=== PATIENT | male | born 1945 | race Caucasian/White ===

== ENCOUNTER 2017-03-17 22:20 | Emergency (ER) | payer OTHER ==
[~2017-03-17] VITALS: Ht 172.7 cm; Wt 90.8 kg
[~2017-03-17 22:20] MED LIST: AMLO10TA2 PO; ASPI-113 PO; CLOP1TAB15 PO; LISI-725 PO; LPR25 PO; NTRGSL/4 SL; SIMV20TA5 PO
[2017-03-17 22:27] VITALS: TEMP 36.4; Ht 172.7 cm; Wt 90.8 kg
--- NOTE | 2017-03-17 23:37 | EMERGENCY ROOM VISIT NOTE ---
History Report prepared by Roxann: Amrit Mckeon Under the Supervision of: Dr. Mir Mcgowan M.D. First contact with patient: 22:58 Chief Complaint: BLEEDING Stated Complaint: EXCESSIVE BLEEDING AFTER WOUND VAC CHANGE Nursing Triage Summary: Pt reports he has wound on chest with wound vac Wound vac was replaced at 1900 today. Pt reports he has bled approx 70cc bright red blood in canister since then History of Present Illness The patient is a 71 year old male who presents to the Emergency Room with complaints of a persistent chest wound bleeding beginning today. He has a wound vac in place, and had it replaced four hours ago. He states that the wound vac was found to have 70 cc of bright red blood in it when removed. The patient states that he has been having problems with this wound since he had CABG surgery about a a year ago. He has had a staph infection of the area previously as well. He denies any recent trauma or straining. The patient also complains of a headache. He denies any shortness of breath, back pain, or leg swelling. He is on Plavix and aspirin. Source of History: patient Onset: Today Position: chest Symptom Intensity: 70 cc Quality: other (bleeding) Timing: other (persistent) Associated Symptoms: + headache, No SOB, No back pain Note: The patient denies any leg swelling. Review of Systems See HPI for pertinent positives & negatives. A total of 6 systems reviewed and were otherwise negative. Past Medical & Surgical Medical Problems: (1) Diverticular disease of colon (2) Essential hypertension (3) History of adenomatous polyp of colon (4) s/p colonoscopy (5) s/p hydrocele repair (6) s/p repair inguinal hernia Family History No pertinent family history stated. Social History Smoking Status: Never Smoker Drug Use: none Marital Status: Current/Historical Medications Scheduled Amlodipine Besylate (Norvasc), 10 MG PO DAILY Aspirin Enteric Coated (Ecotrin Or Generic), 325 MG PO QAM Clopidogrel (Plavix), 75 MG PO QAM Lisinopril (Zestril), 20 MG PO BID Metoprolol Tartrate (Lopressor), 25 MG PO BID Simvastatin (Zocor), 20 MG PO QPM Scheduled PRN Nitroglycerin (Nitrostat), 0.4 MG SL UD PRN Allergies Coded Allergies: Penicillins (Verified Allergy, LIPS SWELL, 08/23/09) LIPS SWELL Physical Exam Vital Signs Date Time Temp Pulse Resp B/P (MAP) Pulse Ox O2 Delivery O2 Flow Rate FiO2 03/17/17 23:44 71 18 174/103 95 03/17/17 22:27 36.4 73 20 196/117 97 Room Air Physical Exam GENERAL: Patient is well appearing and in no acute distress. HEENT: No acute trauma, normocephalic atraumatic, mucous membranes moist, no nasal congestion, no scleral icterus. NECK: No stridor, no adenopathy, no meningismus, trachea is midline. LUNGS: No dyspnea. Clear to auscultation and equal bilaterally. No wheeze, no rhonchi. HEART: Regular rate and rhythm. No murmurs, rubs, gallops appreciated. CHEST: Low central sternal wound vac. No surrounding edema. No drainage from the dressing other than that which is suctioned from the wound vac. Scant amount of serosanguineous fluid in tubing. NEUROLOGIC: Alert and oriented, no acute motor or sensory deficits, no focal weakness, cranial nerves grossly intact. SKIN: No rash, no jaundice, no diaphoresis. Slight bruise under the right eye ( notes scratching due to allergies). Medical Decision & Procedures ED Course 2300: The patient was evaluated in room C4. A complete history and physical exam was performed. 2334: Reevaluated the patient. He has had minimal drainage from the wound vac. Discussed results and discharge instructions: he verbalized understanding and agreement. The patient is ready for discharge. Medical Decision Pleasant 71 yr old male arrives following increased blood in to wound vac from his sternal chest wound. Notes painful replacement several hours earlier by wound care. He is well appearing and after vac off some time now no bleeding in to bandage. Turned vac back on here and just mild sero-sanguinous that is expected. No heavy bleeding. Suspect this was some increased bleeding due to painful vac change earlier in evening. Reviewed symptoms/findings requiring return. Follow up Fri with wound care and surgeon early next week. Regularly checks BP at home and this is elevated which he notes is due to agitation of having to come to ED. Medication Reconcilliation Current Medication List: was personally reviewed by me Blood Pressure Screening Patient's blood pressure: Elevated blood pressure Blood pressure disposition: Did not require urgent referral Impression Primary Impression: Bleeding from wound Additional Impression: Hypertension Scribe Attestation The scribe's documentation has been prepared under my direction and personally reviewed by me in its entirety. I confirm that the note above accurately reflects all work, treatment, procedures, and medical decision making performed by me. Departure Information Dispostion Home / Self-Care Referrals Tony Coyle M.D. (PCP) Patient Instructions My [facility] [address] Additional Instructions If you fill canister, turn off vac and monitor for further bleeding. If continued bleeding in to dressing, apply pressure and return for further evaluation. Return immediately if heavy bleeding, chest pain, shortness of breath, passing out or other concerns. Contact wound care for recheck evaluation tomorrow. Your blood pressure was elevated during this visit. This is quite common in many people who are being evaluated in the Emergency Department for many reasons. However, it is important that you have your Primary Care Provider recheck your blood pressure and discuss whether treatment will be needed. terminologist elevated blood pressure can lead to strokes, heart attacks, kidney failure amongst other medical issues. If you develop severe headaches, chest pain, weakness in arms or legs, or other concerning symptoms call 911. Problem Qualifiers
[2017-03-17 23:44] VITALS: BP 174/103; PULSE 71; O2SAT 95
== END 2017-03-17 23:42 | disposition home or self-care (01) ==
LOC: C.EDB 22:21 → C.EDC 23:42
DX: S21.90XA Unspecified open wound of unspecified part of thorax, initial encounter (principal); X58.XXXA Exposure to other specified factors, initial encounter; I10 Essential (primary) hypertension; K57.30 Diverticulosis of large intestine without perforation or abscess without bleeding; Z86.010 Personal history of colon polyps; Z98.890 Other specified postprocedural states; Z79.82 Long term (current) use of aspirin; Z79.899 Other long term (current) drug therapy; Z88.0 Allergy status to penicillin

== ENCOUNTER 2017-07-17 12:00 | Inpatient (IN) | payer OTHER ==
[~2017-07-17] VITALS: Ht 172.7 cm; Wt 89.4 kg
--- NOTE | 2017-07-17 12:35 | EMERGENCY ROOM VISIT NOTE ---
History Report prepared by Roxann: Javi Rockwell Under the Supervision of: Dr. Cliff Wilks M.D. First contact with patient: 12:07 Chief Complaint: SHORTNESS OF BREATH Stated Complaint: SHORTNESS OF BREATH Nursing Triage Summary: pt to the ED with c/o SOB and no cough no resp distress no complaints of pain History of Present Illness The patient is a 71 year old male who presents to the Emergency Room with complaints of intermittent shortness of breath that began 2-3 weeks ago. He rates his discomfort as a 5/10 in severity. The patient states that his symptoms are worsened with exertion and relieved with rest. He reports that whenever he is shoveling the snow or walking up the stairs, his shortness of breath returns but shortly resolves. The patient states that his episodes last for 3-5 minutes. The patient states that he also has been experiencing chest tightness with exertion. He reports that there was one episode of diaphoresis and nausea that lead to him vomiting up some fluid. He also reports that he has gained five pounds over the last week. The patient states that he thought he was developing flu symptoms, which caused him to report to [facility]. He reports that he had an EKG done there and they sent him to the ED. The patient denies fever, cough, nitroglycerin use, radiation of symptoms, and a change in frequency of symptoms. He states that he had a CABG performed on February 24, [address] James of [facility]. The patient states that he recently had MRSA surgery to cut out a portion of his skin on his chest done on March 05, 2017. He reports that he was given a wound vac following this surgery. Source of History: patient Onset: 2-3 weeks ago Position: other (global) Symptom Intensity: 5/10 Quality: other (global) Timing: constant Modifying Factors (Worsening): exertion Modifying Factors (Relieving): rest Associated Symptoms: + diaphoresis, + chest pain, + nausea, + vomiting, No fevers, No cough Review of Systems See HPI for pertinent positives & negatives. A total of 10 systems reviewed and were otherwise negative. Past Medical & Surgical Medical Problems: (1) CAD (coronary artery disease) of artery bypass graft (2) Diverticular disease of colon (3) Essential hypertension (4) History of adenomatous polyp of colon (5) s/p colonoscopy (6) s/p hydrocele repair (7) s/p repair inguinal hernia Family History Patient reports no known family medical history. Social History Smoking Status: Former Smoker Drug Use: none Marital Status: Current/Historical Medications Scheduled Amlodipine Besylate (Norvasc), 10 MG PO DAILY Aspirin Enteric Coated (Ecotrin Or Generic), 325 MG PO QAM Clopidogrel (Plavix), 75 MG PO QAM Omeprazole ([facility] Omeprazole), Unknown Dose PO DAILY Allergies Coded Allergies: Penicillins (Verified Allergy, Unknown, LIPS SWELL, 07/17/17) LIPS SWELL Physical Exam Vital Signs Date Time Temp Pulse Resp B/P (MAP) Pulse Ox O2 Delivery O2 Flow Rate FiO2 07/17/17 14:18 79 16 168/102 96 Room Air 07/17/17 13:25 95 Room Air 07/17/17 13:20 89 24 169/108 95 Room Air 07/17/17 12:34 91 07/17/17 12:03 36.4 90 18 195/122 96 Room Air Physical Exam GENERAL: Patient is in no acute distress. HEENT: No acute trauma, normocephalic atraumatic, mucous membranes moist, no nasal congestion, no scleral icterus. NECK: No stridor, no adenopathy, no meningismus, trachea is midline. LUNGS: Clear to auscultation bilaterally, no wheeze, no rhonchi, breath sounds equal. HEART: Without murmurs gallops or rubs, regular rate and rhythm. ABDOMEN: Soft, nontender, bowel sounds positive, no hernias, no peritonitis. EXTREMITIES: No cyanosis or edema, full range of motion of all the joints without pain or difficulty, no signs for acute trauma. Mild bilateral pedal edema. NEUROLOGIC: Oriented x 3, no acute motor or sensory deficits, no focal weakness. SKIN: No rash, no jaundice, no diaphoresis. Medical Decision & Procedures ER Provider Diagnostic Interpretation: X-ray results as stated below per interpretation by me and the radiologist: CHEST ONE VIEW PORTABLE CLINICAL HISTORY: 71 years-old Male presenting with CHEST PAIN. TECHNIQUE: Portable upright AP view of the chest was obtained. COMPARISON: 08/15/2012. FINDINGS: Cardiac silhouette is enlarged. Bypass graft rings noted. Prominence of pulmonary vasculature. Minimal vague perihilar and bibasilar opacities. Small right pleural effusion suspected. No pneumothorax. Osseous structures normal. Upper abdomen normal. IMPRESSION: 1. Cardiomegaly with pulmonary vascular prominence and minimal bibasilar opacities suggest volume overload with developing pulmonary edema. 2. Small pleural effusion. Electronically signed by: Benji Harman M.D. 07/17/2017 12:32 PM Dictated Date/Time: 07/17/2017 12:31 PM Laboratory Results 07/17/17 12:25 07/17/17 12:25 Test 07/17/17 12:25 Red Blood Count 5.49 M/uL (4.7-6.1) Mean Corpuscular Volume 88.7 fL (80-100) Mean Corpuscular Hemoglobin 29.3 pg (25-34) Mean Corpuscular Hemoglobin Concent 33.1 g/dl (32-36) RDW Standard Deviation 49.1 fL (36.4-46.3) RDW Coefficient of Variation 15.1 % (11.5-14.5) Mean Platelet Volume 10.2 fL (7.4-10.4) Prothrombin Time 11.2 SECONDS (9.0-12.0) Prothromb Time International Ratio 1.1 (0.9-1.1) Activated Partial Thromboplast Time 25.0 SECONDS (21.0-31.0) Partial Thromboplastin Ratio 1.0 Anion Gap 4.0 mmol/L (3-11) Est Creatinine Clear Calc Drug Dose 66.2 ml/min Estimated GFR () 73.5 Estimated GFR (Non- 63.5 BUN/Creatinine Ratio 14.6 (10-20) Calcium Level 9.2 mg/dl (8.5-10.1) Total Bilirubin 3.3 mg/dl (0.2-1) Aspartate Amino Transf (AST/SGOT) 19 U/L (15-37) Alanine Aminotransferase (ALT/SGPT) 37 U/L (12-78) Alkaline Phosphatase 94 U/L (45-117) Pro-B-Type Natriuretic Peptide 2158 pg/ml (0-900) Total Protein 8.1 gm/dl (6.4-8.2) Albumin 4.1 gm/dl (3.4-5.0) Globulin 4.0 gm/dl (2.5-4.0) Albumin/Globulin Ratio 1.0 (0.9-2) Laboratory results reviewed by . Medications Administered Medications (Trade) Dose Ordered Sig/Bert Route Start Time Stop Time Status Last Admin Dose Admin Furosemide (Lasix Inj) 40 mg NOW STAT IV 07/17/17 13:08 07/17/17 13:09 DC 07/17/17 13:20 40 MG ECG Indication: SOB/dyspnea Rate (beats per minute): 94 Rhythm: sinus rhythm Findings: 1st degree AV block, LBBB, no acute ischemic change, no ectopy Comparison ECG Date: 08/14/12 Change: LBBB is new. ED Course 1211: The patient was evaluated in room A10. A complete history and physical exam was performed. 1308: Ordered Lasix Injection 40 mg IV. 1311: I reevaluated the patient and I am going to give him Lasix. I paged Cardiology. 1313: I discussed the patients case with [facility]. He reports that he will look at the patients history and x-rays and will call me back. 1411: I discussed the patients case with [facility]. He would like to the patient to be further evaluated by a hospitalist. 1421: I reevaluated the patient and updated him on his results. I discussed the treatment plan, which he agrees to. The patient will be further evaluated. 1425: I discussed the patients case with Israel Willams Hospitalist. He understands the patients condition and agrees to accept the patient. The patient will be further evaluated. Medical Decision The patient is a 71 year old male who presents to the ED with complaints of constant shortness of breath. Differential diagnoses considered include cardiac ischemia, IA, bronchitis or pneumonia, CHF, anemia, and electrolyte imbalance. There is no leukocytosis or concerning anemia. No significant electrolyte abnormality, kidney failure or hepatitis. EKG shows a sinus rhythm with a first -degree AV block and a left bundle-branch block. No obvious ischemia. Cardiac enzyme testing times one does not show evidence for acute cardiac injury. Chest film shows CHF, no pneumonia. BNP was elevated consistent with fluid overload. The patient was given IV Lasix, he did diuresis. I discussed the case with the on-call general doc. A hospital stay was recommended. Further cardiac workup is warranted. I spoke to the patient and case management. The on-call hospitalist was consulted. Medication Reconcilliation Current Medication List: was personally reviewed by me Blood Pressure Screening Patient's blood pressure: Elevated blood pressure Blood pressure disposition: Referred to PCP Consults Time Called: 1311 Consulting Physician: [facility] Returned Call: 1313 I discussed the patients case with [facility]. He reports that he will look at the patients history and x-rays and will call me back. Additional Consults: Time Called: 1411 Consulted Physician: [facility] Returned Call: 1411 Additional Comments: I discussed the patients case with [facility]. He would like to the patient to be further evaluated by a hospitalist. Time Called: 1411 Consulted Physician: Israel Willams Hospitalist Returned Call: 1422 Additional Comments: I discussed the patients case with Israel Willams Hospitalist. He understands the patients condition and agrees to accept the patient. The patient will be further evaluated. Impression Primary Impression: Precordial chest pain Additional Impressions: CHF (congestive heart failure) SOB (shortness of breath) Scribe Attestation The scribe's documentation has been prepared under my direction and personally reviewed by me in its entirety. I confirm that the note above accurately reflects all work, treatment, procedures, and medical decision making performed by me. Departure Information Dispostion Being Evaluated By Hospitalist Referrals Tony Coyle M.D. (PCP) Patient Instructions My [facility] Problem Qualifiers
[2017-07-17 12:40] LABS: HEMATOCRIT 48.7 % (42-52); HEMOGLOBIN 16.1 g/dL (14.0-18.0); MEAN CELL VOLUME 88.7 fL (80-100); MEAN CORPUSCULAR HEMOGLOBIN 29.3 pg (25-34); MEAN CORPUSCULAR HGB CONC 33.1 g/dl (32-36); MEAN PLATELET VOLUME 10.2 fL (7.4-10.4); PLATELET COUNT 186 K/uL (130-400); RED CELL DISTRIBUTION WIDTH CV 15.1 % (11.5-14.5); RED CELL DISTRIBUTION WIDTH SD 49.1 fL (36.4-46.3); WHITE BLOOD COUNT 7.99 K/uL (4.8-10.8)
[2017-07-17 12:49] LABS: INR 1.1 (0.9-1.1)
[2017-07-17 12:58] LABS: ALBUMIN 4.1 gm/dl (3.4-5.0); CALCIUM 9.2 mg/dl (8.5-10.1); CREATININE 1.16 mg/dl (0.60-1.40); POTASSIUM 3.7 mmol/L (3.5-5.1)
[2017-07-17] MEDS ORDERED: OMEP20TA40 PO (12:58)
[2017-07-17 13:03] LABS: TOTAL PROTEIN 8.1 gm/dl (6.4-8.2)
[2017-07-17] MEDS ORDERED: FUROSEMIDE 40 MG/4 ML VIAL IV STA (13:08)
[2017-07-17] MEDS ORDERED: ONDANSETRON INJ 2 MG/ML 2 ML VIAL IV PRN (15:00)
--- NOTE | 2017-07-17 16:15 | HISTORY & PHYSICAL EXAMINATION ---
DATE OF ADMISSION: 07/17/2017 PRIMARY CARE PHYSICIAN: Dr. Coyel. CHIEF COMPLAINT: Chest tightness with shortness of breath for the last 2 weeks. HISTORY OF PRESENT COMPLAINT: He is a 71-year-old male with significant past medical history of CAD status post CABG x5 in 2016, history of old CA, diabetes type 2, hypertension and hyperlipidemia, apparently has been complaining of chest tightness on exertion for the last 2 weeks. Condition has been reasonably stable, but he has had an episode of nausea and vomited once yesterday morning. He went to work and his boss asked him to see a doctor for ongoing symptoms of shortness of breath. He went to see Dr. Smith today and was advised to come in to the ER and get admitted for ongoing CHF. He denies to have any chest pain, but he does have chest tightness and shortness of breath. He gained about 4 pounds given this holiday season. He denies to have any swelling of the legs. He did have nausea and vomiting once, but no other symptoms. He denies to have problem with his urine and/or bowel habit. No fever, chills or rigors. No tingling or numbness in the extremities and weakness involving any side. In the ER, he received 1 dose of Lasix and since then he has been feeling reasonably well. PAST MEDICAL HISTORY: Significant for CAD status post CABG x5 in February of 2016, hypertension, hyperlipidemia, history of old CA, diabetes type 2, not on any insulin. PAST SURGICAL HISTORY: Significant for CABG x5 in 2016, the wound was complicated by MRSA infection that required I&D in 2017, but the condition is healed now. At that time, he has had removal of the hardware from the chest as well. Inguinal hernia repair and removal of hydrocele. FAMILY HISTORY: Significant that his father had CABG in 1962 and mother had diabetes. SOCIAL HISTORY: He is . He has 2 children. He does not smoke. He drinks very occasionally and he has been reasonably active. ALLERGIES: PENICILLIN. MEDICATIONS: He has been on Lipitor 80 mg daily, metoprolol succinate 25 mg daily, Plavix 75 mg daily, omeprazole 20 mg daily, furosemide 40 mg tablet as needed and aspirin 81 mg tablet. REVIEW OF SYSTEMS: Other systemic review unremarkable except those mentioned in history of present complaint. PHYSICAL EXAMINATION: GENERAL: On examination in the Emergency Room, he was not having any acute distress. VITAL SIGNS: Temperature 36.4, pulse was 79, blood pressure 168/102, saturation 96% on room air. HEENT: Unremarkable. NECK: Supple. No JVD, no bruit. CHEST: Occasional crackles at the bases, more on the left than the right. HEART: S1, S2 regular, no murmur. ABDOMEN: Soft, benign, nontender, no organomegaly. Bowel sounds present. EXTREMITIES: Trace edema bilaterally and is about 1 on the right side. MUSCULOSKELETAL: Did not show any acute arthritis involving any joint. CENTRAL NERVOUS SYSTEM: He was alert, awake, oriented x3 and no focal sensory and/or motor deficit appreciated. LABORATORY DATA: Noted today - white count was 7.99, H&H 16.1/48.7, platelet was 186, sodium 137, potassium 3.7, chloride 105, carbon dioxide 28, BUN 17, creatinine 1.16, random glucose 129. Total bilirubin 3.3, normal LFT otherwise. ProBNP is 2158. Troponin 0.015. PT/INR unremarkable. IMAGING DATA: Chest x-ray, cardiomegaly with pulmonary vascular prominence and minimal bibasilar opacities suggestive volume overload or developing pulmonary edema, a small pleural effusion. EKG was in sinus rhythm, rate of 94 beats per minute, left bundle branch block with associated ST-T wave changes. Comparing with the prior EKG, no significant change. He underwent an echocardiogram that was done in 2016 and that did not show any pericardial effusion, inferior and posterior wall motion abnormality with hypokinesis and EF was 40%. IMPRESSION AND PLAN: 1. Congestive heart failure. The patient will be admitted to telemetry unit with ongoing chest tightness. We will cycle cardiac enzymes and echocardiogram to evaluate left ventricular function, a cardiology evaluation and will start him on Lasix 40 mg IV daily. 2. Coronary artery disease status post coronary artery bypass grafting. We will continue his current medications for the heart. He does not have any angina symptoms but chest tightness could be angina equivalent. 3. Hyperlipidemia. Can continue with his Lipitor. 4. Diabetes, diet controlled. We will monitor his blood sugar and put him on sliding scale coverage while in the hospital. 5. Hypertension. Blood pressure seems to be on the upper side of normal. Continue with his current blood pressure medications and watch it. 6. Gastrointestinal prophylaxis with Protonix. 7. Deep venous thrombosis prophylaxis.SQ Heparin 8. Code status: Discussed with the patient. He will be a full code. In my clinical judgment, the beneficiary meets criteria as per CMS for 2-midnight stay in the hospital. ILAND
[2017-07-17 16:30] VITALS: BP 177/104; PULSE 72; TEMP 36.5; O2SAT 93; Ht 172.7 cm; Wt 89.4 kg
--- NOTE | 2017-07-17 16:30 | NUR ---
A- PATIENT ADMITTED TO 237 VIA LITTER FROM ED...DIAGNOSIS CHF....LASIX IV GIVEN ED....PATIENT DIURESING ...ABOUT 1800CC SO FAR....O2 SAT ON RA 93%....BREATHSOUNDS WITH CRACKLES LOWER BASES POSTERIORLY..
[2017-07-17 16:55] VITALS: BP 177/104; TEMP 36.5
[2017-07-17 17:06] VITALS: O2SAT 93
--- NOTE | 2017-07-17 18:57 | Cardiology Consultation ---
Cardiology Consultation Date of Consultation: Jul 17, 2017 History of Present Illness Truong Ang is a 71 year old male seen in cardiology consultation per the request of Dr. Mcdonald of the [facility] as well as Dr. Wilks the emergency department for the evaluation of shortness of breath and suspected congestive heart failure. The patient's primary high frequency mill operator is Dr. Noble would most recently seen the patient in January,. The patient is competent cardiac history as delineated below. He describes himself as being relatively physically active. 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 He typically tries to walk 20 miles per week, but he is to keep this up recently due to the change in weather. He describes 2 weeks of progressive worsening shortness of breath. He says this shortness of breath has been worse over the last week when he looks back he does believe that he gets short of breath with physical activity such as trying to walk quickly or trying to climb stairs. He denies any symptoms reminiscent of his prior angina. Recently had an episode of nauseousness yesterday with dry heaving. He was seated the outpatient [facility] clinic today because he was concerned of possible pneumonia. Because of his complex cardiac history he was referred to the emergency room. His chest x-ray was suggestive of mild interstitial edema with trace pleural fluid noted at the right side. His brain atretic peptide level was also elevated. His left bundle branch block that has been present since the time of his bypass surgery 2015. His most recent echocardiogram to place shortly after bypass surgery March 2016 with mild left ventricular systolic dysfunction, ejection fraction of 40% at that time. He was kept in the hospital for further evaluation and treatment. He has received one dose of IV furosemide and has been urinating vigorously. At present he is in no acute distress. History Past Medical History: 1. Chronic coronary heart disease, the patient suffered ventricular arrhythmia/ cardiac arrest setting of a myocardial infarction in 2012 at which time repeat his coronary intervention was performed diagonal branch of the LAD 2. He had progressive coronary heart disease and subsequently underwent coronary artery bypass grafting 5 in February 2060 receiving a BONDS to LAD, saphenous vein graft to the ramus, vein graft to the obtuse marginal 1, free radial graft to obtuse marginal 2, and vein graft to the posterior descending branch of the right coronary artery 3. 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 4. Hypertension 5. Left bundle branch block which as been present since shortly after his bypass surgery 2015 6. Grade 2 diastolic dysfunction 7. Diabetes Past Surgical History: 1. Cardiac catheterization 2015 2. Coronary artery bypass grafting January 2016 3. Sternal wound repair, sternotomy wires removed, February, 4. Removal of hydrocele 2008 5. Inguinal Hernia repair 6. Colonoscopy Social History: He is a nonsmoker only having smoked for a brief amount of time when he was in the [employer] in his early 20s. 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 A total of 10 systems reviewed and were otherwise negative. Allergies Coded Allergies: Penicillins (Verified Allergy, Unknown, LIPS SWELL, 07/17/17) LIPS SWELL Medications Reported Home Medications Medications Dose Route/Sig Max Daily Dose Days Date Category Cvs Omeprazole (Omeprazole) 20 Mg Tab Unknown Dose PO DAILY 07/17/17 Reported Plavix (Clopidogrel Bisulfate) 75 Mg Tab 75 Mg PO QAM 30 08/17/12 Rx Ecotrin Or Generic (Aspirin) 325 Mg Ectab 325 Mg PO QAM 30 08/17/12 Rx Norvasc (Amlodipine Besylate) 10 Mg Tab 10 Mg PO DAILY 08/13/12 Reported Physical Exam Vital Signs (Last 8hrs): Last 8 Hrs Date Time Temp Pulse Resp B/P (MAP) Pulse Ox O2 Delivery O2 Flow Rate FiO2 07/17/17 17:06 93 Room Air 07/17/17 16:55 36.5 18 177/104 07/17/17 16:30 93 Room Air 07/17/17 16:30 93 Room Air 07/17/17 16:30 36.5 72 18 177/104 (128) 93 Room Air 07/17/17 15:40 37.1 91 18 183/102 96 Room Air 07/17/17 14:18 79 16 168/102 96 Room Air 07/17/17 13:25 95 Room Air 07/17/17 13:20 89 24 169/108 95 Room Air 07/17/17 12:34 91 07/17/17 12:03 36.4 90 18 195/122 96 Room Air General Appearance: Alert and Oriented x3. NAD. Head: Normocephalic Atraumatic. Eyes: PERRLA, EOMI, conjunctiva and sclera clear Neck: Supple. No carotid bruits noted. No JVD. No HJD. Respiratory: Minimally decreased breath sounds bilaterally at the bases Cardiovascular: Reg rate and rhythm. S1 and S2 noted. No murmurs, rubs, gallops. PMI non displace. Abdomen: Normal bowel sounds, soft nontender. no abdominal bruits. Extremities: Trace bilateral lower extremity edema Neuro: No focal deficits. Psychiatric: Normal affect. Data Last Resulted 07/17/17 12:25 Last Resulted 07/17/17 12:25 Past 24 Hours Test 07/17/17 12:25 07/17/17 15:41 Range/Units Prothromb Time International Ratio 1.1 0.9-1.1 Prothrombin Time 11.2 9.0-12.0 SECONDS Troponin I 0.015 0.019 0-0.045 ng/ml BNP level 2,158 pg/ml Imaging: Chest x-ray report per radiology, cardiomegaly with pulmonary vascular prominence suggestive of viable overload develop pulmonary edema, small right pleural effusion EKG: Performed 07/17/17 and reviewed independently, sinus rhythm at 94 bpm, first-degree AV block, left bundle branch block, QRS duration 176 ms Telemetry reviewed: Sinus rhythm with left bundle branch block Assessment & Plan Impression: 71-year-old male 1. Shortness of breath, with clinical history radiographic findings consistent with acute combined systolic, diastolic heart failure 2. History of CABG 3. 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 Left bundle branch block Recommendations: Agree with diuretic therapy. Echocardiogram will be obtained tomorrow. I'm concerned that his left ventricular systolic function may have worsened even his left bundle branch block clinical recent patient. He is a long QRS of 170 milliseconds. He has no severo anginal symptoms, but this could be a presentation of worsening ischemic heart disease also.
[2017-07-17] MEDS ORDERED: POTASSIUM CHLORIDE 10 MEQ TABCR PO STA (18:58)
[2017-07-17 19:43] VITALS: BP 160/83; PULSE 65; TEMP 36.7; O2SAT 92
--- NOTE | 2017-07-17 19:55 | NUR ---
A: Patient awake and resting in bed - visiting with family. Denies any complaints upon assessment. SR 60 - 70s on tele. Respirations even and unlabored on RA. Call live within reach. Will monitor patient.
[2017-07-17] MEDS ORDERED: DEXTROSE 50% 50 ML SYR IV PRN (21:00)
[2017-07-17] MEDS ORDERED: GLUCAGON FOR INJ 1 MG VIAL SQ PRN (21:00)
[2017-07-17] MEDS ORDERED: GLUCOSE 40% GEL 15 GM TUBE PO PRN (21:00)
[2017-07-17] MEDS: INSULIN ASPART 100 UNITS/ML 3 ML PEN SC SCH (21:00)
[2017-07-17] MEDS ORDERED: GLUCOSE 10 TABS/TUBE PO PRN (21:00)
[2017-07-17] MEDS: HEPARIN SOD 5000 UNIT/0.5 ML CARP SQ SCH (21:11)
--- NOTE | 2017-07-17 23:40 | NUR ---
A: Patient awake and resting in bed - denies complaints. SB 50s on tele. Call live within reach. Will monitor patient.
[2017-07-17 23:41] VITALS: BP 152/74; PULSE 71; TEMP 36.7; O2SAT 92
[2017-07-18] VITALS (7 sets, daily range): BP systolic 149–174; BP diastolic 78–113; PULSE 58–73; TEMP 36.6–36.9; O2SAT 91–96
[2017-07-18 03:00] LABS: HEMATOCRIT 45.8 % (42-52); MEAN CELL VOLUME 87.9 fL (80-100); MEAN CORPUSCULAR HEMOGLOBIN 28.8 pg (25-34); MEAN CORPUSCULAR HGB CONC 32.8 g/dl (32-36); MEAN PLATELET VOLUME 10.2 fL (7.4-10.4); PLATELET COUNT 175 K/uL (130-400); RED CELL DISTRIBUTION WIDTH SD 48.2 fL (36.4-46.3); WHITE BLOOD COUNT 9.02 K/uL (4.8-10.8)
[2017-07-18 03:18] LABS: CALCIUM 9.1 mg/dl (8.5-10.1); CREATININE 1.23 mg/dl (0.60-1.40)
--- NOTE | 2017-07-18 04:30 | NUR ---
A: Patient resting in bed - denies complaints. SB 40 - 50s on tele. Call live within reach. Will monitor.
[2017-07-18] MEDS: HEPARIN SOD 5000 UNIT/0.5 ML CARP SQ SCH ×3 (05:15→21:05)
[2017-07-18] MEDS: INSULIN ASPART 100 UNITS/ML 3 ML PEN SC SCH ×4 (07:00→21:00)
--- NOTE | 2017-07-18 08:00 | NUR ---
Patient assessed see EMR for more details. vss. no c/o pain nausea sob. call live in reach safety reviewed needs addressed. Patient independent in room with at bedside. IV patent and intact. SB-SR on monitor.
[2017-07-18] MEDS ORDERED: AMLODIPINE BESYLATE 5 MG TAB PO SCH (09:00)
[2017-07-18] MEDS: FUROSEMIDE INJ 40 MG in SYRINGE 0 ML IV SCH (09:00)
[2017-07-18] MEDS ORDERED: ASPIRIN 325 MG ECTAB PO SCH (09:00)
[2017-07-18] MEDS ORDERED: METOPROLOL SUCC 25MG EXT REL TAB PO SCH (09:00)
[2017-07-18] MEDS: ASPIRIN 81 MG ECTAB PO SCH (09:50)
[2017-07-18] MEDS: PANTOprazole SOD 40 MG TAB PO SCH (09:50)
[2017-07-18] MEDS: CLOPIDOGREL BISULFATE 75 MG TAB PO SCH (09:50)
[2017-07-18] MEDS: ATORVASTATIN 40 MG TAB PO SCH (09:50)
--- NOTE | 2017-07-18 12:00 | NUR ---
Patient assessed around this time. vss. no c/o pain nausea sob. call live in reach safety reviewed needs addressed. no significant changes in assessment at this time. Patient resting in bed with at bedside.
--- NOTE | 2017-07-18 13:06 | ECHOCARDIOGRAM REPORT ---
*NOTICE TO RECEIVING DEMOCRAT AGENCY This information is strictly Confidential and protected under [place] law. [place] law prohibits you from making any further disclosure of this information unless further disclosure is expressly permitted by the written consent of the person to whom it pertains or is authorized by law. A general authorization for the release of medical or other information is not sufficient for this purpose. Hospital accepts no responsibility if the information is made available to any other person, INCLUDING THE PATIENT. Interpretation Summary * Name: RUTHY MCKEON Study Date: 07/18/2017 10:43 AM BP: 166/94 mmHg * Patient Location: .2T\S\S237\S\1 HR: 71 * : 1945 (M/d/yyy) Gender: Male Height: 68 in * Age: 71 yrs Ethnicity: CA Weight: 209 lb * Ordering Physician: Andi Mcdonald * Referring Physician: Self, Referred * Performed By: Brad Rosenthal RCS * * Reason For Study: CHF * BSA: 2.1 m2 * -- Conclusions -- * There is mild concentric left ventricular hypertrophy. * The septal motion is abnormal and consistent with left bundle branch block conduction abnormality. * Otherwise, severe global hypokinesis is present. * The LV Ejection Fraction = 20-25%. * The left atrium is moderately dilated. * There is moderate mitral regurgitation. * Aortic valve sclerosis mild, without significant aortic valvular stenosis. * Diastolic dysfunction, Grade II, consistent with elevated left atrial pressure. Procedure Details * A complete two-dimensional transthoracic echocardiogram was performed (2D, M-mode, Doppler and color flow Doppler). Left Ventricle * The left ventricle is normal in size. * There is mild concentric left ventricular hypertrophy. * Left ventricular systolic function is severely reduced. * Ejection Fraction = 20-25%. * Septal motion is consistent with conduction abnormality. * Otherwise, severe global hypokinesis is present. Right Ventricle * The right ventricle is normal size. * The right ventricular systolic function is normal as assessed by tricuspid annular plane systolic excursion (TAPSE) (normal >1.5 cm). Atria * The left atrium is moderately dilated. * Right atrial size is normal. * There is no evidence of atrial septal defect, but resolution does not allow assessment for a patent foramen ovale. Mitral Valve * The mitral valve is normal. * There is no mitral valve stenosis. * There is moderate mitral regurgitation. Tricuspid Valve * The tricuspid valve is normal. * There is no tricuspid stenosis. * Significant tricuspid regurgitation is absent. * Doppler findings do not suggest pulmonary hypertension. Aortic Valve * The aortic valve is trileaflet. * Aortic valve sclerosis mild, without significant aortic valvular stenosis. * Aortic stenosis is absent. * There is no significant aortic regurgitation. Pulmonic Valve * The pulmonary valve is not well seen, but the Doppler examination is normal without significant regurgitation or stenosis. Great Vessels * The aortic root and proximal ascending aorta are normal sized. Pericardium/Pleural * There is no pericardial effusion. Great Vessels * Normal inferior vena cava diameter and respiratory variation suggests normal central venous pressure. Left Ventricular Diastolic Function * Diastolic dysfunction, Grade II, consistent with elevated left atrial pressure. MMode 2D Measurements and Calculations IVSd 1.2 cm IVSs 1.4 cm LVIDd 6.1 cm LVIDs 5.1 cm LVPWd 1.1 cm LVPWs 1.2 cm IVS/LVPW 1.0 FS 15.4 % EDV(Teich) 185.8 ml ESV(Teich) 126.4 ml EF(Teich) 32.0 % EDV(cubed) 225.2 ml ESV(cubed) 136.2 ml EF(cubed) 39.5 % % IVS thick 14.7 % % LVPW thick 8.9 % LV mass(C)d 309.3 grams LV mass(C)dI 148.5 grams/m\S\2 LV mass(C)s 275.2 grams LV mass(C)sI 132.2 grams/m\S\2 SV(Teich) 59.4 ml SI(Teich) 28.5 ml/m\S\2 SV(cubed) 89.0 ml SI(cubed) 42.7 ml/m\S\2 Ao root diam 3.3 cm Ao root area 8.8 cm\S\2 ACS 1.9 cm LA dimension 5.3 cm asc Aorta Diam 3.0 cm LA/Ao 1.6 EDV(sp4-el) 174.0 ml ESV(sp4-el) 142.0 ml EF(sp4-el) 18.4 % EDV(sp2-el) 224.0 ml ESV(sp2-el) 160.0 ml EF(sp2-el) 28.6 % SV(sp4-el) 32.0 ml SI(sp4-el) 15.4 ml/m\S\2 SV(sp2-el) 64.0 ml SI(sp2-el) 30.7 ml/m\S\2 Doppler Measurements and Calculations MV E max nahun 100.0 cm/sec MV A max nahun 55.5 cm/sec MV E/A 1.8 MV P1/2t max nahun 116.8 cm/sec MV P1/2t 89.0 msec MVA(P1/2t) 2.5 cm\S\2 MV dec slope 384.5 cm/sec\S\2 MV dec time 0.17 sec Ao V2 max 103.4 cm/sec Ao max PG 4.3 mmHg Ao max PG (full) 2.5 mmHg LV V1 max PG 1.8 mmHg LV V1 max 67.2 cm/sec PA V2 max 81.1 cm/sec PA max PG 2.6 mmHg TR max nahun 242.7 cm/sec
--- NOTE | 2017-07-18 13:35 | NUR ---
Dr Reyes at bedside discussing patient status and plan of care with patient and .
[2017-07-18] MEDS ORDERED: CARVEDILOL 3.125 MG TAB PO ONE (13:45)
[2017-07-18] MEDS ORDERED: LOSARTAN POTASSIUM 25 MG TAB PO ONE (13:45)
[2017-07-18] MEDS ORDERED: SPIRONOLACTONE 25 MG TAB PO ONE (13:45)
--- NOTE | 2017-07-18 13:56 | Cardiology Follow-Up ---
Subjective General Date of Service: Jul 18, 2017. Chief Complaint: follow up shortness of breath Pt evaluation today including: conversation w/ patient, physical exam History of Present Illness The patient is a 71 year old male seen in follow up. He state breathing is improved after 2 doses of IV furosemide, but he still notes some degree of limitation. Telemetry reveals SR in the 70's with LBBB, and no significant PVCs. Allergies Coded Allergies: Penicillins (Verified Allergy, Unknown, LIPS SWELL, 07/17/17) LIPS SWELL Social History Smoking Status: Never Smoker Hx Tobacco Use In Past Year?: No Hx Alcohol Use - Type And Amou: No Hx Substance Use - Type And Am: No Problem List Medical Problems: (1) Bleeding from wound Status: Acute (2) CHF (congestive heart failure) Status: Acute (3) Hypertension Status: Acute (4) Precordial chest pain Status: Acute (5) SOB (shortness of breath) Status: Acute Physical Exam Vital Signs Last Vital Signs Documentation Date Time Temp Pulse Resp B/P (MAP) Pulse Ox O2 Delivery O2 Flow Rate FiO2 07/18/17 12:00 Room Air 07/18/17 11:37 36.6 66 18 163/98 (119) 96 Physical Exam Constitutional: Level of Distress: NAD Head: normocephalic Neck: supple Lungs: Auscultation: pertinent finding (mildly decreased BS at bases R> L) Cardiovascular: Heart Auscultation: RRR, no murmurs Abdomen: Inspection & Palpation: soft Extremities: pertinent finding (LE edema improved. ) Neurologic: Gait & Station: pertinent finding (no focal neuro deficits ) Assessment and Plan Assessment and Plan Summary of TTecho performed 07/18/17 and reviewed independently: * -- Conclusions -- * There is mild concentric left ventricular hypertrophy. * The septal motion is abnormal and consistent with left bundle branch block conduction abnormality. * Otherwise, severe global hypokinesis is present. * The LV Ejection Fraction = 20-25%. * The left atrium is moderately dilated. * There is moderate mitral regurgitation. * Aortic valve sclerosis mild, without significant aortic valvular stenosis. * Diastolic dysfunction, Grade II, consistent with elevated left atrial pressure. Impression: 71-year-old male 1. Acute systolic heart failure, newly detected decline in LVEF to 20-25%, down from 40% in 2016 and 55% in 2013 -Chronic LBBB, first degree AVB , QRS 170 ms -(new) moderate MR 2. History of CABG , 2016 3. 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 H/o anterolateral STEMI complicated by VF arrest that occurred prior to urgent cardiac cath, for which patient underwent PCI/ NORMA diagonal, 07/2012 5. HTN 6. Dyslipidemia Recommendations: Patient's BPs have been high since admission with SBPs in the 160-170 mm Hg range, although he states home BPs better on his home wrist cuff, SBP in the 140 's. Worsening LVEF may be due to progression of ischemic heart disease with ischemia or occult infarction, progression of conduction system disease with LBBB (and wide QRS), or related to previously under appreciated hypertension. Medication Rx: DC metoprolol succinate, start Coreg, losartan, aldactone. Continue IV furosemide for now. Proceed with Life Vest Wearable defibrillator while in "window" period of further work up and medication RX. Ischemic evaluation after better compensated as outpatient with Pharm nuclear or Pharm Cardiac MRI stress. Inf future, if LVEF remains low despite course of optimal treatment, will refer for Biventricular AICD. Remain in hospital on telemetry. Repeat CXR tomorrow, 07/19/17. Laboratory Results Last 24 Hours Test 07/17/17 15:41 07/17/17 16:45 07/17/17 20:52 07/17/17 21:17 Troponin I 0.019 ng/ml 0.034 ng/ml Bedside Glucose 93 mg/dl 104 mg/dl Test 07/18/17 02:50 07/18/17 06:47 07/18/17 11:26 White Blood Count 9.02 K/uL Red Blood Count 5.21 M/uL Hemoglobin 15.0 g/dL Hematocrit 45.8 % Mean Corpuscular Volume 87.9 fL Mean Corpuscular Hemoglobin 28.8 pg Mean Corpuscular Hemoglobin Concent 32.8 g/dl RDW Standard Deviation 48.2 fL RDW Coefficient of Variation 15.0 % Platelet Count 175 K/uL Mean Platelet Volume 10.2 fL Sodium Level 140 mmol/L Potassium Level 4.0 mmol/L Chloride Level 107 mmol/L Carbon Dioxide Level 30 mmol/L Anion Gap 3.0 mmol/L Blood Urea Nitrogen 18 mg/dl Creatinine 1.23 mg/dl Est Creatinine Clear Calc Drug Dose 62.5 ml/min Estimated GFR () 68.5 Estimated GFR (Non- 59.1 BUN/Creatinine Ratio 14.7 Random Glucose 98 mg/dl Calcium Level 9.1 mg/dl Magnesium Level 2.3 mg/dl Troponin I 0.026 ng/ml Triglycerides Level 78 mg/dl Cholesterol Level 83 mg/dl HDL Cholesterol 35 mg/dl LDL Cholesterol, Calculated 32 mg/dl VLDL Cholesterol, Calculated 16 mg/dl Cholesterol/HDL Ratio 2.4 Thyroid Stimulating Hormone (TSH) 3.060 uIu/ml Bedside Glucose 96 mg/dl 102 mg/dl
--- NOTE | 2017-07-18 14:18 | NUR ---
Case Management Note- Received consult for discharge planning due to patient needing [employer] Life Vest. Referral faxed to [facility], along with completed Medical Order Form. Will most likely not be able to check insurance coverage until . Will continue to follow. Addendum: 07/18/17 at 1543 by Pam Jj SERV Met with patient at bedside. Patient alert & oriented. He states that he lives with his in a ranch style home. Patient is independent with all ADL's. Patient is employed and drives. No active services. 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 Patient plans to return home with Zoll Life Vest. Informed patient that insurance needs to be verified, so he will likely get fitted Wednesday. Will continue to follow.
[2017-07-18] MEDS ORDERED: ACETAMINOPHEN 325 MG TAB ONE (16:10)
--- NOTE | 2017-07-18 16:10 | NUR ---
Patient assessed around this time. Patient c/o MONTANO and BP elevated no prn meds on EMAr called and spoke with Dr. Smallwood orders received and implemented. No new BP meds ordered at this time due to patient just receiving new BP control medications. Other napier assessment unchanged see EMR for more details. Call live in reach safety reviewed needs addressed.
[2017-07-18] MEDS ORDERED: NURSING VERBAL MED ORDER ONE (16:15)
[2017-07-18] MEDS ORDERED: ACETAMINOPHEN 325 MG TAB PO PRN (16:30)
--- NOTE | 2017-07-18 19:22 | Progress Note ---
Medicine Progress Note Date & Time of Visit: Jul 18, 2017 at 19:21. 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 No complaints otherwise of CP or SOB. No overnight events noted. Denies any dizziness or lightheadedness. Objective Last 8 Hrs Date Time Temp Pulse Resp B/P (MAP) Pulse Ox O2 Delivery O2 Flow Rate FiO2 07/18/17 16:00 Room Air 07/18/17 15:47 36.7 73 20 174/113 (133) 95 Room Air 07/18/17 12:00 Room Air 07/18/17 11:37 36.6 66 18 163/98 (119) 96 Physical Exam: GENERAL: Patient is in no acute distress. HEENT: No acute trauma, normocephalic, mucous membranes moist, no nasal congestion, no scleral icterus, conjunctivae clear. NECK: No stridor, trachea is midline. LUNGS: Clear to auscultation bilaterally, no wheeze, no rhonchi, breath sounds equal. HEART: Without murmurs gallops or rubs, regular rate and rhythm. ABDOMEN: Soft, nontender, bowel sounds positive EXTREMITIES: No cyanosis or edema, full range of motion of all the joints without pain or difficulty, no signs for acute trauma. NEUROLOGIC: Oriented x 3, no acute motor or sensory deficits, no focal weakness. SKIN: No rash, no jaundice, no diaphoresis. Laboratory Results: Last 24 Hours Test 07/17/17 20:52 07/17/17 21:17 07/18/17 02:50 07/18/17 06:47 Troponin I 0.034 ng/ml 0.026 ng/ml Bedside Glucose 104 mg/dl 96 mg/dl White Blood Count 9.02 K/uL Red Blood Count 5.21 M/uL Hemoglobin 15.0 g/dL Hematocrit 45.8 % Mean Corpuscular Volume 87.9 fL Mean Corpuscular Hemoglobin 28.8 pg Mean Corpuscular Hemoglobin Concent 32.8 g/dl RDW Standard Deviation 48.2 fL RDW Coefficient of Variation 15.0 % Platelet Count 175 K/uL Mean Platelet Volume 10.2 fL Sodium Level 140 mmol/L Potassium Level 4.0 mmol/L Chloride Level 107 mmol/L Carbon Dioxide Level 30 mmol/L Anion Gap 3.0 mmol/L Blood Urea Nitrogen 18 mg/dl Creatinine 1.23 mg/dl Est Creatinine Clear Calc Drug Dose 62.5 ml/min Estimated GFR () 68.5 Estimated GFR (Non- 59.1 BUN/Creatinine Ratio 14.7 Random Glucose 98 mg/dl Calcium Level 9.1 mg/dl Magnesium Level 2.3 mg/dl Triglycerides Level 78 mg/dl Cholesterol Level 83 mg/dl HDL Cholesterol 35 mg/dl LDL Cholesterol, Calculated 32 mg/dl VLDL Cholesterol, Calculated 16 mg/dl Cholesterol/HDL Ratio 2.4 Thyroid Stimulating Hormone (TSH) 3.060 uIu/ml Test 07/18/17 11:26 07/18/17 16:32 Bedside Glucose 102 mg/dl 96 mg/dl Assessment & Plan Acute Systolic CHF exacerbation: -monitor in telemetry unit -presented with ongoing chest tightness -serial cardiac enzymes -TTE: * -- Conclusions -- * There is mild concentric left ventricular hypertrophy. * The septal motion is abnormal and consistent with left bundle branch block conduction abnormality. * Otherwise, severe global hypokinesis is present. * The LV Ejection Fraction = 20-25%. * The left atrium is moderately dilated. * There is moderate mitral regurgitation. * Aortic valve sclerosis mild, without significant aortic valvular stenosis. * Diastolic dysfunction, Grade II, consistent with elevated left atrial pressure. -Cardiology consulted, appreciate recommendations, started coreg, losartan, spironolactone and lasix and placed CM consult for life vest -continued on Lasix 40 mg IV daily CAD: -status post coronary artery bypass grafting -continue ASA, statin, plavix in addition to above -presented with chest tightness -also had MRSA infection earlier in the year and required removal of sternotomy wire and repair of a fistulous tract HYPERLIPIDEMIA: -continue with Lipitor TYPE II DM: -diet controlled -BSG AC AND HS -on correction sliding scale insulin while in the hospital. HTN: -better controlled with current regimen -monitor Current Inpatient Medications: Current Inpatient Medications Medications (Trade) Dose Ordered Sig/Bert Route Start Time Stop Time Status Last Admin Dose Admin Heparin Sodium (Porcine) (Heparin Sq 5000 Unit/0.5ml) 5,000 unit Q8 SQ 07/17/17 22:00 08/16/17 21:59 07/18/17 14:50 5,000 UNIT Ondansetron HCl (Zofran Inj) 4 mg Q6H PRN IV 07/17/17 15:00 08/16/17 14:59 Clopidogrel Bisulfate (plAVix TAB) 75 mg QAM PO 07/18/17 09:00 08/17/17 08:59 07/18/17 09:50 75 MG Pantoprazole Sodium (Protonix Tab) 40 mg QAM PO 07/18/17 09:00 08/17/17 08:59 07/18/17 09:50 40 MG Furosemide 40 mg/ Syringe 4 ml @ 4 mls/min DAILY IV 07/18/17 09:00 08/17/17 08:59 07/18/17 09:00 4 MLS/MIN Atorvastatin Calcium (Lipitor Tab) 80 mg QAM PO 07/18/17 09:00 08/17/17 08:59 07/18/17 09:50 80 MG Aspirin (Ecotrin Tab) 81 mg QAM PO 07/18/17 09:00 08/17/17 08:59 07/18/17 09:50 81 MG Insulin Aspart (novoLOG ASPART) SLIDING SCALE G... ACHS SC 07/17/17 21:00 08/16/17 20:59 Glucose (Glucose 40% Gel) 15-30 GRAMS 15 GRAMS... UD PRN PO 07/17/17 21:00 08/16/17 20:59 Glucose (Glucose Chew Tab) 4-8 Tablets 4 Tabl... UD PRN PO 07/17/17 21:00 08/16/17 20:59 Dextrose (Dextrose 50% 50ML Syringe) 25-50ML OF 50% DW IV FOR... UD PRN IV 07/17/17 21:00 08/16/17 20:59 Glucagon (Glucagon Inj) 1 mg UD PRN SQ 07/17/17 21:00 08/16/17 20:59 Carvedilol (Coreg Tab) 6.25 mg BID PO 07/18/17 21:00 08/17/17 20:59 Spironolactone (Aldactone Tab) 25 mg QAM PO 07/19/17 09:00 08/18/17 08:59 Losartan Potassium (coZAAR TAB) 25 mg QAM PO 07/19/17 09:00 08/18/17 08:59 Acetaminophen (Tylenol Tab) 650 mg DAILY PRN PO 07/18/17 16:30 08/17/17 16:29
--- NOTE | 2017-07-18 21:05 | NUR ---
A: Patient awake and resting in bed. States he was depressed earlier today because of the news he got from the doctors. Denies any complaints upon assessment. SR 60s on tele. Refused to have blood sugar checked tonight because he states it has been in the 90s. Call live within reach. Will monitor patient.
[2017-07-18] MEDS: CARVEDILOL 6.25 MG TAB PO SCH (21:06)
--- NOTE | 2017-07-19 | NUR ---
A: Patient awake and resting in bed - denies. SB 50s on tele. Call live within reach. Will monitor.
[2017-07-19 04:23] VITALS: BP 139/81; PULSE 67; TEMP 36.5; O2SAT 91
--- NOTE | 2017-07-19 04:34 | NUR ---
A: Patient resting in bed - states he feels better. SR 60s on tele monitor. HR did drop into high 30s while sleeping but did not sustain. Call live within reach. Will monitor patient.
[2017-07-19] MEDS: HEPARIN SOD 5000 UNIT/0.5 ML CARP SQ SCH ×3 (05:55→20:21)
[2017-07-19 07:01] LABS: HEMATOCRIT 48.3 % (42-52); MEAN CORPUSCULAR HEMOGLOBIN 28.8 pg (25-34); MEAN CORPUSCULAR HGB CONC 33.1 g/dl (32-36); MEAN PLATELET VOLUME 10.5 fL (7.4-10.4); PLATELET COUNT 177 K/uL (130-400); RED CELL DISTRIBUTION WIDTH CV 14.9 % (11.5-14.5); RED CELL DISTRIBUTION WIDTH SD 47.4 fL (36.4-46.3); WHITE BLOOD COUNT 8.52 K/uL (4.8-10.8)
[2017-07-19 07:41] VITALS: BP 172/94; PULSE 64; TEMP 36.6; O2SAT 96
[2017-07-19 07:41] LABS: CALCIUM 9.2 mg/dl (8.5-10.1); CREATININE 1.08 mg/dl (0.60-1.40); POTASSIUM 3.7 mmol/L (3.5-5.1)
[2017-07-19] MEDS: CARVEDILOL 6.25 MG TAB PO SCH ×2 (07:56→20:16)
[2017-07-19] MEDS: CLOPIDOGREL BISULFATE 75 MG TAB PO SCH (07:56)
[2017-07-19] MEDS: PANTOprazole SOD 40 MG TAB PO SCH (07:56)
[2017-07-19] MEDS: ASPIRIN 81 MG ECTAB PO SCH (07:56)
[2017-07-19] MEDS: ATORVASTATIN 40 MG TAB PO SCH (07:57)
[2017-07-19] MEDS: FUROSEMIDE INJ 40 MG in SYRINGE 0 ML IV SCH (08:00)
--- NOTE | 2017-07-19 08:00 | NUR ---
Pt assessed at this time. denies pain or shortness of breath. lungs are diminished. vital signs stable on room air. tolerating diet and po fluids. nsr 60s with ivcd on plant and instrument engineer. no peripheral edema noted. skin intact. independently ambulatory in the room. iv saline lock patent. call live in reach and needs addressed. will continue to monitor.
[2017-07-19] MEDS: INSULIN ASPART 100 UNITS/ML 3 ML PEN SC SCH ×3 (08:03→20:16)
[2017-07-19] MEDS ORDERED: LOSARTAN POTASSIUM 25 MG TAB PO SCH (09:00)
[2017-07-19] MEDS: SPIRONOLACTONE 25 MG TAB PO SCH (09:17)
--- NOTE | 2017-07-19 11:38 | DIAGNOSTIC IMAGING REPORT ---
TWO VIEW CHEST CLINICAL HISTORY: Follow-up CHF. FINDINGS: PA and lateral chest radiographs are compared to study dated 07/17/2017. The heart is enlarged and there is atherosclerotic calcification of the thoracic aorta. Pulmonary vascular congestion is completely resolved from 07/17/2017. Small pleural effusions and bibasilar atelectasis persist. There is no pneumothorax. The skeletal structures appear osteopenic. The bony thorax appears intact. IMPRESSION: 1. Cardiomegaly. Pulmonary vascular congestion has almost completely resolved from 07/17/2017. 2. Small pleural effusions are identified with bibasilar atelectasis. Electronically signed by: Cliff Quiles M.D. 07/19/2017 11:36 AM Dictated Date/Time: 07/19/2017 11:35 AM
[2017-07-19 11:54] VITALS: BP 148/82; PULSE 66; TEMP 36.6; O2SAT 96
--- NOTE | 2017-07-19 12:00 | NUR ---
Pt assessed. denies pain or shortness of breath. lungs are diminished. vital signs stable on room air. tolerating diet and po fluids. nsr 60s with ivcd on environmental monitoring specialist. independently ambulatory in the room. iv saline lock patent. call live in reach and needs addressed. family at bedside with pt. will continue to monitor.
--- NOTE | 2017-07-19 14:39 | Cardiology Follow-Up ---
Subjective General Date of Service: Jul 19, 2017. Chief Complaint: follow up shortness of breath Pt evaluation today including: conversation w/ patient, conversation w/ family , physical exam History of Present Illness The patient is a 71 year old male seen in follow up. Pt continues to note improvement in his shortness of breath, but he still feels as though he has congestion in his lungs. Repeat CXR today reveals interval improvement , however still has residual small pleural effusions. BP remains above goal. Allergies Coded Allergies: Penicillins (Verified Allergy, Unknown, LIPS SWELL, 07/17/17) LIPS SWELL Social History Smoking Status: Never Smoker Hx Tobacco Use In Past Year?: No Hx Alcohol Use - Type And Amou: No Hx Substance Use - Type And Am: No Problem List Medical Problems: (1) Bleeding from wound Status: Acute (2) CHF (congestive heart failure) Status: Acute (3) Hypertension Status: Acute (4) Precordial chest pain Status: Acute (5) SOB (shortness of breath) Status: Acute Physical Exam Vital Signs Last Vital Signs Documentation Date Time Temp Pulse Resp B/P (MAP) Pulse Ox O2 Delivery O2 Flow Rate FiO2 07/19/17 12:00 Room Air 07/19/17 11:54 36.6 66 18 148/82 (104) 96 Physical Exam Constitutional: Level of Distress: NAD Head: normocephalic Neck: supple Lungs: Auscultation: pertinent finding (mildly decreased BS at bases R> L) Cardiovascular: Heart Auscultation: RRR, no murmurs Abdomen: Inspection & Palpation: soft Extremities: pertinent finding (LE edema improved. ) Neurologic: Gait & Station: pertinent finding (no focal neuro deficits ) Assessment and Plan Assessment and Plan Summary of TTecho performed 07/18/17 and reviewed independently: * -- Conclusions -- * There is mild concentric left ventricular hypertrophy. * The septal motion is abnormal and consistent with left bundle branch block conduction abnormality. * Otherwise, severe global hypokinesis is present. * The LV Ejection Fraction = 20-25%. * The left atrium is moderately dilated. * There is moderate mitral regurgitation. * Aortic valve sclerosis mild, without significant aortic valvular stenosis. * Diastolic dysfunction, Grade II, consistent with elevated left atrial pressure. Impression: 71-year-old male 1. Acute systolic heart failure, newly detected decline in LVEF to 20-25%, down from 40% in 2016 and 55% in 2012 -Chronic LBBB, first degree AVB , QRS 170 ms -(new) moderate MR 2. History of CABG , 2015 3. 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 H/o anterolateral STEMI complicated by VF arrest that occurred prior to urgent cardiac cath, for which patient underwent PCI/ NORMA diagonal, 07/2012 5. HTN-BP uncontrolled on hospital readings 6. Dyslipidemia Recommendations: Worsening LVEF may be due to progression of ischemic heart disease with ischemia or occult infarction, progression of conduction system disease with LBBB (and wide QRS), or related to previously under appreciated hypertension. Medication Rx: DC 'd metoprolol succinate, started Coreg, losartan, aldactone. HRs in the 40's with sleep, stable SR 60'-70s while awake, but will continue same Coreg dose to avoid bradycardia. Increase losartan to 50 mg daily. Continue aldactone 25 mg daily. Give addition dose of IV furosemide 20 mg this afternoon. Repeat chem panel in am. Proceed with Life Vest Wearable defibrillator while in "window" period of further work up and medication RX. Case management help noted and appreciated, perhaps will be able to have pt fitted while in hospital on 07/20. Ischemic evaluation after better compensated as outpatient with Pharm nuclear or Pharm Cardiac MRI stress. Inf future, if LVEF remains low despite course of optimal treatment, will refer for Biventricular AICD. Remain in hospital on telemetry. Continue SQ heparin for DVT prophylaxis. Laboratory Results Last 24 Hours Test 07/18/17 16:32 07/19/17 06:41 Bedside Glucose 96 mg/dl 100 mg/dl White Blood Count 8.52 K/uL Red Blood Count 5.55 M/uL Hemoglobin 16.0 g/dL Hematocrit 48.3 % Mean Corpuscular Volume 87.0 fL Mean Corpuscular Hemoglobin 28.8 pg Mean Corpuscular Hemoglobin Concent 33.1 g/dl RDW Standard Deviation 47.4 fL RDW Coefficient of Variation 14.9 % Platelet Count 177 K/uL Mean Platelet Volume 10.5 fL Sodium Level 138 mmol/L Potassium Level 3.7 mmol/L Chloride Level 105 mmol/L Carbon Dioxide Level 27 mmol/L Anion Gap 6.0 mmol/L Blood Urea Nitrogen 21 mg/dl Creatinine 1.08 mg/dl Est Creatinine Clear Calc Drug Dose 69.0 ml/min Estimated GFR () 80.2 Estimated GFR (Non- 69.2 BUN/Creatinine Ratio 19.6 Random Glucose 94 mg/dl Calcium Level 9.2 mg/dl
[2017-07-19] MEDS ORDERED: LOSARTAN POTASSIUM 25 MG TAB PO ONE (14:45)
[2017-07-19] MEDS ORDERED: FUROSEMIDE INJ 20 MG in SYRINGE 0 ML IV ONE (15:00)
[2017-07-19 15:47] VITALS: BP 157/78; PULSE 64; TEMP 36.4; O2SAT 92
--- NOTE | 2017-07-19 15:53 | NUR ---
Case Management: Received a call from Yolie at [facility]. Her phone is [phone]. She informs me that their nurse Luca will be here around lunch time tomorrow to fit pt for the vest. Yolie suggested that a family member also be present for education and I spoke with pt's via phone. She plans on being here in the morning tomorrow.
--- NOTE | 2017-07-19 16:00 | NUR ---
Pt assessed. denies pain or shortness of breath. lungs are diminished. vital signs stable on room air. tolerating diet and po fluids. nsr 60s with ivcd on cardiac rehabilitation program director. call live in reach and needs addressed. family at bedside with pt. will continue to monitor.
--- NOTE | 2017-07-19 19:25 | Progress Note ---
Medicine Progress Note Date & Time of Visit: Jul 19, 2017 at 19:25. Subjective Patient doing well, has not had severe chest heaviness since the initial day of admission. No overnight events noted. Tolerating PO without any difficulty. Has been urinating frequently on account of the lasix. No other complaints at this time. Objective Last 8 Hrs Date Time Temp Pulse Resp B/P (MAP) Pulse Ox O2 Delivery O2 Flow Rate FiO2 07/19/17 16:00 Room Air 07/19/17 15:47 36.4 64 20 157/78 (104) 92 Room Air 07/19/17 12:00 Room Air 07/19/17 11:54 36.6 66 18 148/82 (104) 96 Physical Exam: GENERAL: Patient is in no acute distress. HEENT: No acute trauma, normocephalic, mucous membranes moist, no nasal congestion, no scleral icterus, conjunctivae clear. NECK: No stridor, trachea is midline. LUNGS: Clear to auscultation bilaterally, no wheeze, no rhonchi, breath sounds equal. HEART: Without murmurs, gallops, or rubs, regular rate and rhythm. ABDOMEN: Soft, nontender, bowel sounds positive EXTREMITIES: No cyanosis or edema, full range of motion of all the joints without pain or difficulty, no signs for acute trauma. NEUROLOGIC: Oriented x 3, no acute motor or sensory deficits, no focal weakness. SKIN: No rash, no jaundice, no diaphoresis. Laboratory Results: Last 24 Hours Test 07/19/17 06:41 White Blood Count 8.52 K/uL Red Blood Count 5.55 M/uL Hemoglobin 16.0 g/dL Hematocrit 48.3 % Mean Corpuscular Volume 87.0 fL Mean Corpuscular Hemoglobin 28.8 pg Mean Corpuscular Hemoglobin Concent 33.1 g/dl RDW Standard Deviation 47.4 fL RDW Coefficient of Variation 14.9 % Platelet Count 177 K/uL Mean Platelet Volume 10.5 fL Sodium Level 138 mmol/L Potassium Level 3.7 mmol/L Chloride Level 105 mmol/L Carbon Dioxide Level 27 mmol/L Anion Gap 6.0 mmol/L Blood Urea Nitrogen 21 mg/dl Creatinine 1.08 mg/dl Est Creatinine Clear Calc Drug Dose 69.0 ml/min Estimated GFR () 80.2 Estimated GFR (Non- 69.2 BUN/Creatinine Ratio 19.6 Bedside Glucose 100 mg/dl Random Glucose 94 mg/dl Calcium Level 9.2 mg/dl Assessment & Plan ACUTE SYSTOLIC CHF EXACERBATION: -monitor in telemetry unit -presented with ongoing chest tightness -serial cardiac enzymes negative -TTE: * -- Conclusions -- * There is mild concentric left ventricular hypertrophy. * The septal motion is abnormal and consistent with left bundle branch block conduction abnormality. * Otherwise, severe global hypokinesis is present. * The LV Ejection Fraction = 20-25%. * The left atrium is moderately dilated. * There is moderate mitral regurgitation. * Aortic valve sclerosis mild, without significant aortic valvular stenosis. * Diastolic dysfunction, Grade II, consistent with elevated left atrial pressure. -Cardiology consulted, appreciate recommendations, started coreg, losartan, spironolactone and lasix and placed CM consult for life vest -continued on Lasix 40 mg IV daily, and will likely need PO at discharge CAD: -status post coronary artery bypass grafting -continue ASA, statin, plavix in addition to above -presented with chest tightness -also had sternal MRSA infection earlier in the year and required removal of sternotomy wire and repair of a fistulous tract HYPERLIPIDEMIA: -continue with Lipitor TYPE II DM: -has been diet controlled -BSG AC AND HS -on correction sliding scale insulin while in the hospital. HTN: -better controlled with current regimen -monitor Current Inpatient Medications: Current Inpatient Medications Medications (Trade) Dose Ordered Sig/Bert Route Start Time Stop Time Status Last Admin Dose Admin Heparin Sodium (Porcine) (Heparin Sq 5000 Unit/0.5ml) 5,000 unit Q8 SQ 07/17/17 22:00 08/16/17 21:59 07/19/17 14:41 5,000 UNIT Ondansetron HCl (Zofran Inj) 4 mg Q6H PRN IV 07/17/17 15:00 08/16/17 14:59 Clopidogrel Bisulfate (plAVix TAB) 75 mg QAM PO 07/18/17 09:00 08/17/17 08:59 07/19/17 07:56 75 MG Pantoprazole Sodium (Protonix Tab) 40 mg QAM PO 07/18/17 09:00 08/17/17 08:59 07/19/17 07:56 40 MG Furosemide 40 mg/ Syringe 4 ml @ 4 mls/min DAILY IV 07/18/17 09:00 08/17/17 08:59 07/19/17 08:00 4 MLS/MIN Atorvastatin Calcium (Lipitor Tab) 80 mg QAM PO 07/18/17 09:00 08/17/17 08:59 07/19/17 07:57 80 MG Aspirin (Ecotrin Tab) 81 mg QAM PO 07/18/17 09:00 08/17/17 08:59 07/19/17 07:56 81 MG Insulin Aspart (novoLOG ASPART) SLIDING SCALE G... ACHS SC 07/17/17 21:00 08/16/17 20:59 Glucose (Glucose 40% Gel) 15-30 GRAMS 15 GRAMS... UD PRN PO 07/17/17 21:00 08/16/17 20:59 Glucose (Glucose Chew Tab) 4-8 Tablets 4 Tabl... UD PRN PO 07/17/17 21:00 08/16/17 20:59 Dextrose (Dextrose 50% 50ML Syringe) 25-50ML OF 50% DW IV FOR... UD PRN IV 07/17/17 21:00 08/16/17 20:59 Glucagon (Glucagon Inj) 1 mg UD PRN SQ 07/17/17 21:00 08/16/17 20:59 Carvedilol (Coreg Tab) 6.25 mg BID PO 07/18/17 21:00 08/17/17 20:59 07/19/17 07:56 6.25 MG Spironolactone (Aldactone Tab) 25 mg QAM PO 07/19/17 09:00 08/18/17 08:59 07/19/17 09:17 25 MG Acetaminophen (Tylenol Tab) 650 mg DAILY PRN PO 07/18/17 16:30 08/17/17 16:29 Sacubitril/ Valsartan (Entresto 24-26 Mg) 1 tab BID PO 07/20/17 09:00 08/19/17 08:59
[2017-07-19 19:40] VITALS: BP 159/95; PULSE 65; TEMP 36.6; O2SAT 94
--- NOTE | 2017-07-19 20:20 | NUR ---
A: Patient awake and resting in bed - denies complaints. States he had some left upper abdominal gas pain that has improved from walking. SR 60s on tele monitor. Call live within reach. Will monitor patient.
[2017-07-19 23:46] VITALS: BP 141/69; PULSE 52; TEMP 36.5; O2SAT 95
--- NOTE | 2017-07-19 23:49 | NUR ---
A: Patient resting in bed - denies any complaints. SB 50s on tele. Call live within reach. Will monitor.
[2017-07-20 03:00] VITALS: BP 145/89; PULSE 55; TEMP 36.5; O2SAT 94
--- NOTE | 2017-07-20 03:00 | NUR ---
A: Patient resting in chair at bedside - denies any complaints. SB 40 - 50s on tele. Call live within reach. Will monitor patient.
[2017-07-20] MEDS: HEPARIN SOD 5000 UNIT/0.5 ML CARP SQ SCH (05:54)
[2017-07-20 07:07] LABS: CALCIUM 9.5 mg/dl (8.5-10.1); CREATININE 1.16 mg/dl (0.60-1.40); POTASSIUM 3.7 mmol/L (3.5-5.1)
[2017-07-20 08:00] VITALS: BP 151/83; PULSE 51; TEMP 36.5; O2SAT 93
--- NOTE | 2017-07-20 08:00 | NUR ---
ID: Patient sitting in chair eating breakfast this morning. Patient alert and oriented and completely independent. Patient is SB in the mid 50s on monitor. BP stable. Patient denies any CP or SOB. Right AC IV flushed and patent. Patient voiding adequately with IV lasix. VSS. Patient denies any needs at this time. Will continue to monitor. Plans for patient to receive a LifeVest and to be discharged this afternoon.
[2017-07-20] MEDS: CARVEDILOL 6.25 MG TAB PO SCH (08:02)
[2017-07-20] MEDS: FUROSEMIDE INJ 40 MG in SYRINGE 0 ML IV SCH (08:06)
[2017-07-20] MEDS: ASPIRIN 81 MG ECTAB PO SCH (08:06)
[2017-07-20] MEDS: ATORVASTATIN 40 MG TAB PO SCH (08:07)
[2017-07-20] MEDS: SPIRONOLACTONE 25 MG TAB PO SCH (08:07)
[2017-07-20] MEDS: CLOPIDOGREL BISULFATE 75 MG TAB PO SCH (08:08)
[2017-07-20] MEDS: INSULIN ASPART 100 UNITS/ML 3 ML PEN SC SCH ×2 (08:09→11:00)
[2017-07-20] MEDS: PANTOprazole SOD 40 MG TAB PO SCH (08:48)
[2017-07-20] MEDS ORDERED: LOSARTAN POTASSIUM 50 MG TAB PO SCH (09:00)
[2017-07-20] MEDS ORDERED: SACUBITRIL-VALSARTAN 24-26 MG TAB PO SCH ×2 (09:00)
--- NOTE | 2017-07-20 10:05 | NUR ---
[facility] NOTE: Patient has a history of MRSA from [facility]. Confirmed with [facility] Infection Control department that the patient had a wound culture of a superficial sternal wound (from a CABG procedure) positive for MRSA, collected 02/19/2017. Flagged patient. Patient is on contact precautions.
--- NOTE | 2017-07-20 11:08 | Discharge Instructions ---
Discharge Instructions Date of Service Jul 20, 2017. Admission Reason for Admission: Cad, Chf Discharge Discharge Diagnosis / Problem: Acute systolic CHF, chest pain Discharge Goals Goal(s): Therapeutic intervention Activity Recommendations Activity Limitations: per Instructions/Follow-up section Lifting Limitations: gradually increase as tolerated Exercise/Sports Limitations: gradually increase as tolerated please see instructions from Life vest for additional recommendations . Instructions / Follow-Up Instructions / Follow-Up Please see Dr. Wooten on July 26 at 12:45 PM for hospital follow up; there were no appointments available with Dr. Coyle and we needed an appointment within 1 week of discharge. Please follow up with Cardiology (Real) as scheduled Please expect a call from [facility] regarding scheduling of the Cardiac [place] Current Hospital Diet Patient's current hospital diet: Diabetes Type 2 Diet, AHA Diet (Heart Healthy) Discharge Diet Recommended Diet: AHA Diet (Heart Healthy), Diabetes Type 2 Diet Pending Studies Studies pending at discharge: no Laboratory Results Lipid Panel Test 07/18/17 02:50 Range/Units Triglycerides Level 78 0-150 mg/dl Cholesterol Level 83 0-200 mg/dl HDL Cholesterol 35 mg/dl Cholesterol/HDL Ratio 2.4 LDL Cholesterol, Calculated 32 mg/dl Medical Emergencies . Who to Call and When: Medical Emergencies: If at any time you feel your situation is an emergency, please call 911 immediately. . Non-Emergent Contact Non-Emergency issues call your: Primary Care Provider, Director Of Surgery . . "Provider Documentation" section prepared by Yamile Smallwood. . VTE Core Measure Inpt VTE Proph given/why not?: Unfractionated heparin SQ
[2017-07-20] MEDS ORDERED: CRG625 PO (11:12)
[2017-07-20] MEDS ORDERED: SACU1TAB PO (11:12)
[2017-07-20] MEDS ORDERED: ASPI-320 PO (11:12)
[2017-07-20] MEDS ORDERED: SPIR25TA6 PO (11:12)
[2017-07-20] MEDS ORDERED: LPT40 PO (11:12)
[2017-07-20] MEDS ORDERED: TORS10TA14 PO (11:12)
--- NOTE | 2017-07-20 11:20 | Cardiology Follow-Up ---
Subjective General Date of Service: Jul 20, 2017. Chief Complaint: follow up shortness of breath Pt evaluation today including: conversation w/ patient, conversation w/ family , physical exam History of Present Illness The patient is a 71 year old male seen in follow up. Patient feels well. Coreg held for HR low 50's this am, pt asymptomatic. Has tolerated initial dose of Entresto. Allergies Coded Allergies: Penicillins (Verified Allergy, Unknown, LIPS SWELL, 07/17/17) LIPS SWELL Social History Smoking Status: Never Smoker Hx Tobacco Use In Past Year?: No Hx Alcohol Use - Type And Amou: No Hx Substance Use - Type And Am: No Problem List Medical Problems: (1) Bleeding from wound Status: Acute (2) CHF (congestive heart failure) Status: Acute (3) Hypertension Status: Acute (4) Precordial chest pain Status: Acute (5) SOB (shortness of breath) Status: Acute Physical Exam Vital Signs Last Vital Signs Documentation Date Time Temp Pulse Resp B/P (MAP) Pulse Ox O2 Delivery O2 Flow Rate FiO2 07/20/17 08:00 36.5 51 18 151/83 (105) 93 Room Air 07/19/17 15:47 Physical Exam Constitutional: Level of Distress: NAD Head: normocephalic Neck: supple Lungs: Auscultation: pertinent finding (mildly decreased BS at bases R> L) Cardiovascular: Heart Auscultation: RRR, no murmurs Abdomen: Inspection & Palpation: soft Extremities: pertinent finding (LE edema improved. ) Neurologic: Gait & Station: pertinent finding (no focal neuro deficits ) Assessment and Plan Assessment and Plan Summary of TTecho performed 07/18/17 and reviewed independently: * -- Conclusions -- * There is mild concentric left ventricular hypertrophy. * The septal motion is abnormal and consistent with left bundle branch block conduction abnormality. * Otherwise, severe global hypokinesis is present. * The LV Ejection Fraction = 20-25%. * The left atrium is moderately dilated. * There is moderate mitral regurgitation. * Aortic valve sclerosis mild, without significant aortic valvular stenosis. * Diastolic dysfunction, Grade II, consistent with elevated left atrial pressure. Impression: 71-year-old male 1. Acute systolic heart failure, newly detected decline in LVEF to 20-25%, down from 40% in 2016 and 55% in 2013 -Chronic LBBB, first degree AVB , QRS 170 ms -(new) moderate MR 2. History of CABG , 2016 3. 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 H/o anterolateral STEMI complicated by VF arrest that occurred prior to urgent cardiac cath, for which patient underwent PCI/ NORMA diagonal, 07/2012 5. HTN-BP uncontrolled on hospital readings 6. Dyslipidemia Recommendations: Worsening LVEF may be due to progression of ischemic heart disease with ischemia or occult infarction, progression of conduction system disease with LBBB (and wide QRS), or related to previously under appreciated hypertension. Medication Rx: DC 'd metoprolol succinate, started Coreg, losartan, aldactone. HRs in the 40's with sleep, stable SR 60'-70s while awake, but will continue same Coreg dose to avoid bradycardia. Losartan added this hospital stay, will discontinue and transition to Entresto. Continue aldactone 25 mg daily. Start Torsemide 10 mg PO daily for home. Madelyn Walker is currently fitting his Life Vest in the patient's room and providing the necessary education. Ischemic evaluation after better compensated as outpatient with Pharm nuclear or Pharm Cardiac MRI stress. Inf future, if LVEF remains low despite course of optimal treatment, will refer for Biventricular AICD. Stable from cardiac perspective for discharge. I placed not in his outpt Epic chart , requesting follow up in1-2 weeks, ordering cardiac MRI stress, and asking for help with prior auth for Entresto. Laboratory Results Last 24 Hours Test 07/20/17 06:19 07/20/17 06:38 Sodium Level 138 mmol/L Potassium Level 3.7 mmol/L Chloride Level 103 mmol/L Carbon Dioxide Level 29 mmol/L Anion Gap 6.0 mmol/L Blood Urea Nitrogen 26 mg/dl Creatinine 1.16 mg/dl Est Creatinine Clear Calc Drug Dose 64.4 ml/min Estimated GFR () 73.5 Estimated GFR (Non- 63.5 BUN/Creatinine Ratio 22.2 Random Glucose 97 mg/dl Calcium Level 9.5 mg/dl Bedside Glucose 94 mg/dl
--- NOTE | 2017-07-20 11:41 | Discharge Summary ---
Discharge Summary Date of Service Jul 20, 2017. Discharge Summary Admission Date: Jul 17, 2017 at 15:03 Discharge Date: Jul 20, 2017 Discharge Disposition: Home Principal Diagnosis: New systolic CHF with exacerbation, HTN uncontrolled Consultations: Cardiology Medication Reconciliation New Medications: Torsemide (Demadex) 10 Mg Tab 10 MG PO DAILY, #30 TAB Aspirin (Aspirin EC Low Dose) 81 Mg Ectab 81 MG PO QAM, #30 TABS Atorvastatin (Lipitor) 40 Mg Tab 80 MG PO QAM, #60 TAB Carvedilol (Carvedilol) 6.25 Mg Tab 6.25 MG PO BID, #60 TAB Sacubitril-Valsartan (Entresto 24-26 mg) 1 Tab Tab 1 TAB PO BID, #60 TAB Spironolactone (Spironolactone) 25 Mg Tab 25 MG PO QAM, #30 TAB Continued Medications: Clopidogrel (Plavix) 75 Mg Tab 75 MG PO QAM for 30 Days, 11 Refills Omeprazole (Cvs Omeprazole) 20 Mg Tab Unknown Dose PO DAILY Admission Information HPI (per Admitting provider): HISTORY OF PRESENT COMPLAINT: He is a 71-year-old male with significant past medical history of CAD status post CABG x5 in 2015, history of old AL, diabetes type 2, hypertension and hyperlipidemia, apparently has been complaining of chest tightness on exertion for the last 2 weeks. Condition has been reasonably stable, but he has had an episode of nausea and vomited once yesterday morning. He went to work and his boss asked him to see a doctor for ongoing symptoms of shortness of breath. He went to see Dr. Smith today and was advised to come in to the ER and get admitted for ongoing CHF. He denies to have any chest pain, but he does have chest tightness and shortness of breath. He gained about 4 pounds given this holiday season. He denies to have any swelling of the legs. He did have nausea and vomiting once, but no other symptoms. He denies to have problem with his urine and/or bowel habit. No fever, chills or rigors. No tingling or numbness in the extremities and weakness involving any side. In the ER, he received 1 dose of Lasix and since then he has been feeling reasonably well. PAST MEDICAL HISTORY: Significant for CAD status post CABG x5 in [place] of 2016, hypertension, hyperlipidemia, history of old AL, diabetes type 2, not on any insulin. PAST SURGICAL HISTORY: Significant for CABG x5 in 2016, the wound was complicated by MRSA infection that required I&D in 2017, but the condition is healed now. At that time, he has had removal of the hardware from the chest as well. Inguinal hernia repair and removal of hydrocele. FAMILY HISTORY: Significant that his father had CABG in 1962 and mother had diabetes. SOCIAL HISTORY: He is . He has 2 children. He does not smoke. He drinks very occasionally and he has been reasonably active. ALLERGIES: PENICILLIN. MEDICATIONS: He has been on Lipitor 80 mg daily, metoprolol succinate 25 mg daily, Plavix 75 mg daily, omeprazole 20 mg daily, furosemide 40 mg tablet as needed and aspirin 81 mg tablet. REVIEW OF SYSTEMS: Other systemic review unremarkable except those mentioned in history of present complaint. PHYSICAL EXAMINATION: GENERAL: On examination in the Emergency Room, he was not having any acute distress. VITAL SIGNS: Temperature 36.4, pulse was 79, blood pressure 168/102, saturation 96% on room air. HEENT: Unremarkable. NECK: Supple. No JVD, no bruit. CHEST: Occasional crackles at the bases, more on the left than the right. HEART: S1, S2 regular, no murmur. ABDOMEN: Soft, benign, nontender, no organomegaly. Bowel sounds present. EXTREMITIES: Trace edema bilaterally and is about 1 on the right side. MUSCULOSKELETAL: Did not show any acute arthritis involving any joint. CENTRAL NERVOUS SYSTEM: He was alert, awake, oriented x3 and no focal sensory and/or motor deficit appreciated. Hospital Course ACUTE SYSTOLIC CHF EXACERBATION: -monitor in telemetry unit -presented with ongoing chest tightness -serial cardiac enzymes negative -TTE: * -- Conclusions -- * There is mild concentric left ventricular hypertrophy. * The septal motion is abnormal and consistent with left bundle branch block conduction abnormality. * Otherwise, severe global hypokinesis is present. * The LV Ejection Fraction = 20-25%. * The left atrium is moderately dilated. * There is moderate mitral regurgitation. * Aortic valve sclerosis mild, without significant aortic valvular stenosis. * Diastolic dysfunction, Grade II, consistent with elevated left atrial pressure. -Cardiology consulted, appreciate recommendations, started coreg, losartan, spironolactone and lasix and placed CM consult for life vest -continued on Lasix 40 mg IV daily, and will likely need PO at discharge CAD: -status post coronary artery bypass grafting -continue ASA, statin, plavix in addition to above -presented with chest tightness -also had sternal MRSA infection earlier in the year and required removal of sternotomy wire and repair of a fistulous tract HYPERLIPIDEMIA: -continue with Lipitor TYPE II DM: -has been diet controlled -BSG AC AND HS -on correction sliding scale insulin while in the hospital. HTN: -better controlled with current regimen -monitor PHYSICAL EXAM: GENERAL: Patient is in no acute distress. HEENT: No acute trauma, normocephalic, mucous membranes moist, no nasal congestion, no scleral icterus. NECK: No stridor, trachea is midline. LUNGS: Clear to auscultation bilaterally, no wheeze, no rhonchi, breath sounds equal. HEART: Without murmurs gallops or rubs, regular rate and rhythm. ABDOMEN: Soft, nontender, bowel sounds positive EXTREMITIES: No cyanosis or edema, full range of motion of all the joints without pain or difficulty, no signs for acute trauma. NEUROLOGIC: Oriented x 3, no acute motor or sensory deficits, no focal weakness. SKIN: No rash, no jaundice, no diaphoresis. Total time spent on discharge = 37 This includes examination of the patient, discharge planning, medication reconciliation, and communication with other providers. Discharge Instructions See patient instructions
[2017-07-20 12:06] VITALS: BP 151/83; PULSE 71; TEMP 36.5; O2SAT 93
--- NOTE | 2017-07-20 12:35 | NUR ---
Patient discharged to home with all belongings. Discharge instructions read to patient. Patient verbalized understanding. IV removed. Monitor removed. at bedside. Patient left in wheelchair.
--- NOTE | 2017-07-21 11:39 | NUR ---
Case Management: Notified this morning that pt called yesterday evening stating that he could not fill his Entresto prescription because pre-auth was required. Pre-auth was not able to be obtained overnight d/t insurance being closed. Spoke with Dr. Reyes today and he stated that [facility] office is currently working on the auth. for Entresto. No additional needs identified.
== END 2017-07-20 12:35 | disposition home or self-care (01) | DRG 293 ==
LOC: C.EDB 12:01 → C.2T 15:03 → ENRESERV 15:32
PROVIDERS: ADMIT Internal Medicine; ATTEND Internal Medicine
DX: I50.21 Acute systolic (congestive) heart failure (principal); I25.10 Atherosclerotic heart disease of native coronary artery without angina pectoris; I11.0 Hypertensive heart disease with heart failure; E11.9 Type 2 diabetes mellitus without complications; E78.5 Hyperlipidemia, unspecified; I44.7 Left bundle-branch block, unspecified; I25.2 Old myocardial infarction; Z88.0 Allergy status to penicillin; Z79.82 Long term (current) use of aspirin; Z79.02 Long term (current) use of antithrombotics/antiplatelets; Z87.891 Personal history of nicotine dependence; Z83.3 Family history of diabetes mellitus